=== PATIENT | female | born 1995 | race Caucasian/White ===

== ENCOUNTER 2021-08-18 17:15 | Outpatient (CLI) | payer BC, SELFPAY ==
--- NOTE | 2021-08-18 16:45 | CRLHL7_ITS ---
For Patients: As a result of the Century Cures Act, medical imaging exams and procedure reports are released immediately into your electronic medical record. You may view this report before your referring provider. If you have questions, please contact your health care provider. INDICATION: RIGHT LOWER EXTREMITY PAIN TECHNIQUE: Ultrasound venous duplex right lower extremity. COMPARISON: None. FINDINGS: The right common femoral, superficial femoral, deep femoral, popliteal, posterior tibial, and greater saphenous veins are fully compressible with normal waveforms. The contralateral left common femoral artery is fully compressible with normal waveform. No masses evident. IMPRESSION: Normal ultrasound of the right lower extremity veins. Dictated by: Charles Gan MD @ 08/18/2021 17:46:54 (Electronically Signed)
== END 2021-08-18 17:16 | disposition home or self-care (01) ==
LOC: US 17:16
PROVIDERS: PCP Family Medicine; Visit Provider Nurse Practitioner Family
DX: M79.604 Pain in right leg (principal); M79.89 Other specified soft tissue disorders
CPT/HCPCS: 93971

== ENCOUNTER 2022-02-12 10:43 | Emergency (ER) | payer BC, SELFPAY ==
[2022-02-12 10:57] VITALS: BP 111/79; PULSE 110; RESP 14; TEMP 36.9; O2SAT 98; BMI 37.4
[2022-02-12 11:52] LABS: Basophils Percent Auto 0.1 % (0.0-3.0); Eosinophils Percent Auto 0.1 % (0.0-7.0); Hematocrit 41.4 % (33.0-51.0); Immature Granulocytes Pct Auto 0.2 %; Lymphocytes Percent Auto 7.3 % (20-44); Mean Corpuscular HGB Conc 34 gm/dL (32-36); Mean Corpuscular Hemoglobin 28 pg (26-34); Mean Corpuscular Volume 84 fL (80-100); Neutrophils Percent Auto 87.3 % (42.0-72.0); Platelet Count* 251 K/uL (140-440); RDW Coefficient of Variation % 12.2 % (11.5-15.5); Red Blood Count 4.95 m/uL (4.00-5.20); White Blood Count* 12.35 K/uL (4.50-11.00)
[2022-02-12 12:04] LABS: Slide Review Reflex No
[2022-02-12 12:14] LABS: Albumin* 4.6 g/dL (3.3-5.0); Chloride* 102 mmol/L (96-114); Sodium* 137 mmol/L (135-149)
[2022-02-12 12:15] LABS: PCR FLU A Negative PCR FLU A (Negative); PCR FLU B Negative PCR FLU B (Negative); PCR RSV Negative PCR RSV (Negative)
--- NOTE | 2022-02-12 12:15 | ED_ITS ---
HPI - General Adult General Time Seen by Provider: 12:15 Date Seen: 02/12/22 Chief complaint: Diarrhea Stated complaint: C diff Time Seen by Provider: 02/12/22 10:59 Source: patient Mode of arrival: ambulatory Limitations: no limitations History of Present Illness HPI narrative: Patient is a 26 year white female with history of significant C diff infection after antibiotics in the past, she was on metronidazole recently for bacterial vaginosis yesterday and today developed a fever, fevers last today, frequent loose stools mucousy, very similar to when she had C diff in the past. She has not done any stool collection at this point, has some mild abdominal pain mostly to after the diarrhea. She denies , has had no other significant symptoms, no chest pain, no shortness of breath, no rigors, but did have a fever yesterday. No fever today noted O2 sat 90% on room air today Related Data Home Medications Medication Instructions Recorded Confirmed bupropion HCl 150 mg 24 hr tablet, tab PO 08/18/21 08/18/21 extended release bupropion HCl 300 mg 24 hr tablet, ea PO 08/18/21 08/18/21 extended release clonazepam 0.5 mg tablet 0.5 mg PO PRN 02/12/22 duloxetine 60 mg capsule,delayed 60 mg PO DAILY 02/12/22 02/12/22 release (Cymbalta) Previous Rx's Medication Instructions Recorded vancomycin 125 mg capsule 125 mg PO QID #40 caps 02/12/22 vancomycin 125 mg capsule 125 mg PO QID #40 caps 02/12/22 Allergies Allergy/AdvReac Type Severity Reaction Status Date / Time doxycycline Allergy Intermediate Nausea Verified 08/18/21 15:45 Review of Systems Status of ROS: Reports: 10 or more systems reviewed and unremarkable except as noted in History and below PFSH PFS Social History Smoking Status: Never smoker How often do you have a drink containing alcohol: never AUDIT-C Alcohol total score: 0 Non-prescribed substance use: denies use Exam Narrative: Exam Narrative: Objective: Vital signs unremarkable In general no apparent distress, noncyanotic Talks in even unlabored sentences HEENT is unremarkable neck is supple Pulses regular Abdomen benign soft nontender mild diffuse tenderness but no rebound, or guarding no palpable masses Extremities are no edema Good perfusion peripherally Const: Vital Signs, click to edit/add: Vital Signs - 24 hr 02/12/22 10:57 02/12/22 13:16 Temperature 98.4 F 98.4 F Pulse Rate [Pulse Oximeter] 110 H 89 Respiratory Rate 14 14 Blood Pressure [Ri ght Upper Arm] 111/79 111/79 Pulse Oximetry 98 Oxygen Delivery Me thod Room Air Course Vital Signs Vital signs: Initial Vital Signs Temperature 98.4 F 02/12/22 10:57 Temperature Source Temporal Artery Scan 02/12/22 10:57 Pulse Rate 110 H 02/12/22 10:57 Pulse Rhythm 02/12/22 10:57 Respiratory Rate 14 02/12/22 10:57 Blood Pressure 111/79 02/12/22 10:57 Blood Pressure Mean 89 02/12/22 10:57 Blood Pressure Position Sitting 02/12/22 10:57 Pulse Oximetry 98 02/12/22 10:57 Oxygen Delivery Method 02/12/22 10:57 Vital Signs Temperature 98.4 F 02/12/22 10:57 Pulse Rate 110 H 02/12/22 10:57 Respiratory Rate 14 02/12/22 10:57 Blood Pressure 111/79 02/12/22 10:57 Pulse Oximetry 98 02/12/22 10:57 Oxygen Delivery Method 02/12/22 10:57 Temperature 98.4 F 02/12/22 13:16 Pulse Rate 89 02/12/22 13:16 Respiratory Rate 14 02/12/22 13:16 Blood Pressure 111/79 02/12/22 13:16 Pulse Oximetry 98 02/12/22 10:57 Oxygen Delivery Method 02/12/22 10:57 Medical Decision Making [facility] Narrative Medical decision making narrative: Patient has history of significant C diff infection in the past subsequent antibiotics. Even though she was on Flagyl, I think it makes sense to check her for C diff, stool culture, O&P. Given her white count is about 12,000 at and she appears nontoxic I do not think she needs imaging studies at this time. But I do think it would be buchanan to start her on C diff treatment and will give her vancomycin 125 orally and start 125 q.i.d. times 10 days. Will see collect stool samples and cultures at home, she will have family bring those back to the hospital. Good hand washing, isolation as best possible at home. Return to ED problems concerns or worsening. She was comfortable this plan. Addendum: The patient's labs look reassuring, white count under 15,000. Her belly is not peritoneal. I think we can have her collect samples at home, start vancomycin orally, follow up with regular doctor next few days, return here sooner problems concerns worsening. Patient was comfortable this thanks Lab Data Labs: Lab Results 02/12/22 02/12/22 02/12/22 Range/Units 11:30 11:40 11:40 WBC 12.35 H (4.50-11.00) K/uL RBC 4.95 (4.00-5.20) m/uL Hgb 14.0 (12.0-16.0) gm/dL Hct 41.4 (33.0-51.0) % MCV 84 (80-100) fL MCH 28 (26-34) pg MCHC 34 (32-36) gm/dL RDW Coeff of Miguel 12.2 (11.5-15.5) % Plt Count 251 (140-440) K/uL Neut % (Auto) 87.3 H (42.0-72.0) % Lymph % (Auto) 7.3 L (20-44) % [place] % (Auto) 5.0 (0.0-11.0) % Eos % (Auto) 0.1 (0.0-7.0) % Baso % (Auto) 0.1 (0.0-3.0) % Neut # (Auto) 10.80 H (1.7-7.0) K/uL Lymph # (Auto) 0.90 (0.90-2.90) K/uL [place] # (Auto) 0.60 (0.00-0.90) K/UL Eos # (Auto) 0.00 (0.00-0.50) K/uL Baso # (Auto) 0.00 (0.00-0.30) K/uL Sodium 137 (135-149) mmol/L Potassium 4.0 (3.6-5.1) mmol/L Chloride 102 (96-114) mmol/L Carbon Dioxide 25 (20-32) mmol/L BUN 10 (5-24) mg/dL Creatinine 0.7 (0.5-1.5) mg/dL Estimated Creat Clear 93.51 Estimated GFR 124 ml/min Glucose 96 (60-115) mg/dL Calcium 9.5 (8.4-10.6) mg/dL Total Bilirubin 1.4 (0.1-1.5) mg/dL Direct Bilirubin 0.0 (0.0-0.5) mg/dL AST 24 (12-35) U/L ALT 20 (4-35) U/L Alkaline Phosphatase 126 (40-150) U/L C-Reactive Protein 7.3 H (0.5-1.0) mg/dL Total Protein 8.3 (6.0-8.3) g/dL Albumin 4.6 (3.3-5.0) g/dL HCG, Qual (Negative) SARS-CoV-2 (PCR) Negative SARS-CoV-2 (Negative) Influenza Type A (PCR) Negative PCR FLU A (Negative) Influenza Type B (PCR) Negative PCR FLU B (Negative) RSV (PCR) Negative PCR RSV (Negative) 02/12/22 Range/Units 11:40 WBC (4.50-11.00) K/uL RBC (4.00-5.20) m/uL Hgb (12.0-16.0) gm/dL Hct (33.0-51.0) % MCV (80-100) fL MCH (26-34) pg MCHC (32-36) gm/dL RDW Coeff of Miguel (11.5-15.5) % Plt Count (140-440) K/uL Neut % (Auto) (42.0-72.0) % Lymph % (Auto) (20-44) % [place] % (Auto) (0.0-11.0) % Eos % (Auto) (0.0-7.0) % Baso % (Auto) (0.0-3.0) % Neut # (Auto) (1.7-7.0) K/uL Lymph # (Auto) (0.90-2.90) K/uL [place] # (Auto) (0.00-0.90) K/UL Eos # (Auto) (0.00-0.50) K/uL Baso # (Auto) (0.00-0.30) K/uL Sodium (135-149) mmol/L Potassium (3.6-5.1) mmol/L Chloride (96-114) mmol/L Carbon Dioxide (20-32) mmol/L BUN (5-24) mg/dL Creatinine (0.5-1.5) mg/dL Estimated Creat Clear Estimated GFR ml/min Glucose (60-115) mg/dL Calcium (8.4-10.6) mg/dL Total Bilirubin (0.1-1.5) mg/dL Direct Bilirubin (0.0-0.5) mg/dL AST (12-35) U/L ALT (4-35) U/L Alkaline Phosphatase (40-150) U/L C-Reactive Protein (0.5-1.0) mg/dL Total Protein (6.0-8.3) g/dL Albumin (3.3-5.0) g/dL HCG, Qual Negative (Negative) SARS-CoV-2 (PCR) (Negative) Influenza Type A (PCR) (Negative) Influenza Type B (PCR) (Negative) RSV (PCR) (Negative) Discharge Plan Discharge Clinical Impression: History of Clostridioides difficile infection, Diarrhea Patient Disposition: Home w/ Parent or Adult Condition: Stable Additional Instructions: Vancomycin 4 times a day as prescribed, stool samples to obtain at home, fluids, rest, Tylenol as needed, return to ED worsening or increasing abdominal pain. Or fevers that are unrelenting. Update regular doctor next couple of days. Activity Level: Light activity Discharge Diet: Regular Diet Detail: Eat yogurt Prescriptions: New vancomycin 125 mg capsule 125 mg PO QID Qty: 40 0RF vancomycin 125 mg capsule 125 mg PO QID Qty: 40 0RF No Action bupropion HCl 300 mg tablet extended release 24 hr PO Label Comments: TAKE 1 TABLET BY MOUTH EVERY DAY IN THE MORNING bupropion HCl 150 mg tablet extended release 24 hr PO duloxetine [Cymbalta] 60 mg capsule,delayed release(DR/EC) 60 mg PO DAILY clonazepam 0.5 mg tablet 0.5 mg PO PRN Label Comments: TAKE 1-2 TABLETS BY MOUTH TWICE A DAY NEEDED Follow Up/Referrals: Grant Gautam MD [Primary Care Provider] - Stand Alone Forms: [facility] Info Instructions
[2022-02-12 12:17] LABS: Carbon Dioxide* 25 mmol/L (20-32); Creatinine* 0.7 mg/dL (0.5-1.5); Est. Creatinine Clearance* 93.51; Estimated Glomerular Filt Rate 124 ml/min; HCG Qualitative Serum* Negative (Negative)
[2022-02-12 12:18] LABS: Alanine Aminotransferase* 20 U/L (4-35); Alkaline Phosphatase* 126 U/L (40-150); Aspartate Amino Transferase* 24 U/L (12-35); Bilirubin Total* 1.4 mg/dL (0.1-1.5); Blood Urea Nitrogen* 10 mg/dL (5-24); Calcium* 9.5 mg/dL (8.4-10.6); Glucose* 96 mg/dL (60-115); Total Protein* 8.3 g/dL (6.0-8.3)
[2022-02-12 12:20] LABS: C Reactive Protein* 7.3 mg/dL (0.5-1.0)
[2022-02-12 12:33] LABS: SARS PCR* Negative SARS-CoV-2 (Negative)
[2022-02-12] MEDS: VANCOMYCIN 125 MG CAPSULE PO (12:47)
[2022-02-12] MEDS: KETOROLAC 30 MG/ML inj IVP (12:47)
[2022-02-12] MEDS: 0.9 % SODIUM CHLORIDE 1000 ml 1,000 ML 6000 ML IV (12:49)
[2022-02-12 13:16] VITALS: BP 111/79; PULSE 89; RESP 14; TEMP 36.9
--- NOTE | 2022-02-12 13:19 | ED.NURSE ---
Pt requested Vanco Rx be sent to [facility] on [address] resent rx to correct pharmacy. Left voicemail for [facility] in [place] to cancel current rx. Pt notified of this.
--- NOTE | 2022-02-12 13:23 | ED.NURSE ---
Stool sample collection supplies provided to Pt.
[2022-02-12 17:43] LABS: CDIFFEPI 027 PRESUMPTIVE NEGATIVE (Negative)
[2022-02-12 17:50] LABS: C.Difficile POSITIVE (Negative)
--- NOTE | 2022-02-12 18:01 | ED.NURSE ---
Called and reviewed C-diff result with Pt. Per Dr. Bryant, continue Vanco abx and f/u with PCP. Instructions relayed to Pt. No further questions.
[2022-02-20 00:57] LABS: Ova and Parasite, Fecal Negative (Negative)
== END 2022-02-12 13:16 | disposition home or self-care (01) ==
PROVIDERS: Emergency Provider Family Medicine; PCP Family Medicine
DX: R19.7 Diarrhea, unspecified (principal); Z86.19 Personal history of other infectious and parasitic diseases
CPT/HCPCS: 36415; 80048; 80076; 84703; 85025; 86140; 87045; 87046; 87177; 87209; 87427; 87493; 87502; 87634; 87635; 96374; 99283; 99284; J1885; J7030